=== PATIENT | male | born 1955 | race Hispanic/Latino ===

== ENCOUNTER 2019-03-08 06:12 | Day surgery (SDC) | payer BC ==
[2019-03-07 13:35] VITALS: BMI 29.1
[2019-03-08] MEDS ORDERED: Midazolam HCl 2 mg/2 ml Vial ONE (06:56)
[2019-03-08] MEDS ORDERED: Fentanyl 100 MCG/2 ML VIAL ONE ×3 (06:57→08:57)
[2019-03-08 07:35] LABS: Anion Gap 17 mmol/L (10-20); BUN (Urea Nitrogen) 19 mg/dL (8.4-25.7); Calc. Creatinine Clearance 93 mL/min (70-130); Calcium 9.7 mg/dL (7.8-10.44); Carbon Dioxide 23 mmol/L (23-31); Chloride 104 mmol/L (98-107); Estimated GFR-MDRD 65; Glucose 167 mg/dL (80-115); Potassium 4.1 mmol/L (3.5-5.1); Sodium 140 mmol/L (136-145)
[2019-03-08] MEDS ORDERED: PROPOFOL 200 MG/20 ML VIAL ONE (11:02)
[2019-03-08] MEDS ORDERED: Lidocaine 2% w/Epinephrine 1:200K 20 ML VIAL ONE (11:02)
[2019-03-08] MEDS ORDERED: Ketorolac Tromethamine 30 MG/ML VIAL ONE (11:02)
[2019-03-08] MEDS ORDERED: Bupivacaine HCl 0.5%/Epinephrine 1:200,000/PF 30 ml Vial ONE (11:02)
[2019-03-08] MEDS ORDERED: Dexamethasone 20 MG/5 ML VIAL ONE (11:02)
[2019-03-08] MEDS ORDERED: Ondansetron PF 4 MG/2 ML Vial ONE (11:02)
--- NOTE | 2019-03-08 14:08 | OP ---
DATE OF PROCEDURE: 03/08/2019 PREOPERATIVE DIAGNOSIS: Bucket-handle meniscus tear. POSTOPERATIVE DIAGNOSES: Bucket-handle lateral meniscus tear, complex tear, medial meniscus tear, calcium pyrophosphate deposition disease, osteoarthritis. ANESTHESIA: General. ESTIMATED BLOOD LOSS: Minimal. SPECIMENS: None. DRAINS: None. COMPLICATIONS: None. DESCRIPTION OF PROCEDURE: Scope was placed in the lateral portal and probe was placed in the medial portal. He had a large flap of meniscus in the anterior aspect of the medial compartment of the knee. This was debrided using basket forceps and a full-radius resector to a stable rim. The entire medial femoral condyle, medial tibial plateau, and medial meniscus was encrusted in severe calcium deposition disease. I debrided as much of this as possible. The ACL was intact. Lateral compartment had a bucket-handle tear completely blocking the anterior aspect of the joint. This was debrided using a 5-0 full-radius resector and basket forceps. I smoothed the meniscus and probed it to confirm it was stable. The entire lateral compartment was also completely encased in calcium pyrophosphate disease as was the suprapatellar pouch. I removed multiple loose bodies in the suprapatellar pouch, irrigated the knee. Ports were closed with nylon suture. Sterile dressing was applied. There were no complications. Job ID: [id number]
--- NOTE | 2019-03-08 16:30 | EKG ---
Test Reason : PREOP Blood Pressure : / mmHG Vent. Rate : 066 BPM Atrial Rate : 066 BPM P-R Int : 130 ms QRS Dur : 088 ms QT Int : 414 ms P-R-T Axes : -02 045 016 degrees QTc Int : 434 ms Normal sinus rhythm Normal ECG No previous ECGs available Confirmed by DR. Bety PAUL ([id number]) on 03/08/2019 4:30:11 PM Referred By: JONAH Confirmed By:DR. Bety PAUL
== END 2019-03-08 10:17 | disposition home or self-care (01) ==
LOC: SDC 06:12
PROVIDERS: ATTEND Orthopaedic Surgery
PROC: 0SBD4ZZ Excision of Left Knee Joint, Percutaneous Endoscopic Approach (ICD-10-PCS; principal; 2019-03-08)
DX: S83.232A Complex tear of medial meniscus, current injury, left knee, initial encounter (principal); S83.252A Bucket-handle tear of lateral meniscus, current injury, left knee, initial encounter; M25.862 Other specified joint disorders, left knee; M17.12 Unilateral primary osteoarthritis, left knee; I10 Essential (primary) hypertension; E78.5 Hyperlipidemia, unspecified; I69.354 Hemiplegia and hemiparesis following cerebral infarction affecting left non-dominant side; E11.9 Type 2 diabetes mellitus without complications; E78.00 Pure hypercholesterolemia, unspecified; M10.9 Gout, unspecified; Z87.891 Personal history of nicotine dependence; Z79.82 Long term (current) use of aspirin; Z79.84 Long term (current) use of oral hypoglycemic drugs; Z79.899 Other long term (current) drug therapy; Z88.5 Allergy status to narcotic agent
CPT/HCPCS: 36415; 80048; 93005; 93010; J0670; J0690; J1100; J1885; J2250; J2405; J2704; J3010